=== PATIENT | male | born 1935 | race Caucasian/White ===

== ENCOUNTER 2017-01-22 17:55 | Emergency (ER) | payer OTHER ==
[~2017-01-22] VITALS: Ht 177.8 cm; Wt 72.6 kg
[~2017-01-22 17:55] MED LIST: ASCO500T20 PO; ASPI81TA2 PO; BISA-79 PO; CHOL100035 PO; FOLI0.4T2 PO; MIRA50TA PO; OMEG300C3 PO; PRAM0.253 PO; PRIM50TA27 PO; PSYL0.526 PO; SYN75 PO; VIT1CAPS6 PO; VITA100014 PO; VITA1CAP PO
[2017-01-22 17:57] VITALS: BP_SYST 141
[2017-01-22] MEDS ORDERED: NACL 0.9% 1,000 ML IV ONE (18:02)
[2017-01-22] MEDS ORDERED: DIPH-TET-PERTUS Vaccine 0.5 ML VIAL (ADACEL) I.M. ONE (18:15)
[2017-01-22 18:42] LABS: BASOPHILS % (AUTO) 0.8 % (0.0-2.0); EOSINOPHILS # (AUTO) 0.3 K/uL (0.0-0.4); EOSINOPHILS % (AUTO) 6.8 % (0.0-4.0); HEMATOCRIT 37.3 % (36-54); HEMOGLOBIN 12.4 g/dL (14.0-18.0); LYMPHOCYTES # (AUTO) 1.4 K/uL (1.0-5.5); LYMPHOCYTES % (AUTO) 35.1 % (20.5-51.5); MEAN CORPUSCULAR HEMOGLOBIN 31 pg (27-31); MEAN CORPUSCULAR HGB CONC 33 % (32-36); MEAN CORPUSCULAR VOLUME 94 fL (79.0-98.0); MONOCYTES # (AUTO) 0.5 K/uL (0.0-1.0); NEUTROPHILS # (AUTO) 1.9 K/uL (1.8-7.7); NEUTROPHILS % (AUTO) 46.3 % (40.0-70.0); PLATELET COUNT (AUTO) 315 K/uL (130-430); RED BLOOD CELL COUNT(AUTO) 3.98 MIL/uL (4.2-6.2); RED CELL DISTRIBUTION WIDTH 13.6 % (9.0-15.0); WHITE BLOOD COUNT (AUTO) 4.1 K/uL (4.8-10.8)
[2017-01-22 18:54] LABS: ANION GAP 10 (5-15); CALCIUM 9.2 mg/dL (8.4-11.0); CHLORIDE 96 mmol/L (98-107); CREATININE 0.67 mg/dL (0.55-1.30); GLUCOSE 102 mg/dL (70-99); POTASSIUM 4.7 mmol/L (3.5-5.1); SODIUM SERUM 134 mmol/L (136-145); UREA NITROGEN, BLOOD 12 mg/dL (8-21)
[2017-01-22 18:56] LABS: PROTHROMBIN TIME 10.6 SECS (9.5-12.5)
[2017-01-22 19:03] LABS: ALANINE AMINOTRANSFERASE 18 U/L (12-78); ALBUMIN 3.5 g/dL (3.4-4.8); ASPARTATE AMINOTRANSFERASE 22 U/L (10-37); TOTAL BILIRUBIN 0.3 mg/dL (0.0-1.0)
[2017-01-22 19:11] LABS: ALCOHOL, BLOOD 119 mg/dL (<10)
[2017-01-22 19:58] VITALS: BP_SYST 138
== END 2017-01-22 19:58 | disposition home or self-care (01) ==
LOC: SED 17:55
DX: S00.01XA Abrasion of scalp, initial encounter (principal); S80.212A Abrasion, left knee, initial encounter; I10 Essential (primary) hypertension; W19.XXXA Unspecified fall, initial encounter; Y93.89 Activity, other specified; Y92.89 Other specified places as the place of occurrence of the external cause; Y99.8 Other external cause status
CPT/HCPCS: 36415; 70450; 71010; 72125; 80053; 84484; 85025; 85610; 85730; 90471; 90715; 93005; 96360; 99285; G0482; J7030